=== PATIENT | female | born 1960 | race Caucasian/White ===

== ENCOUNTER → 2023-11-04 06:32 | Outpatient (REF) | payer BC, SELFPAY ==
[2023-11-04 07:49] LABS: ALT (SGPT) 15 U/L (0-35); AST (SGOT) 26 U/L (14-36); Albumin 4.3 g/dl (3.5-5.0); Alkaline Phosphatase 59 U/L (38-126); Blood Urea Nitrogen 16 mg/dl (7-17); Calcium 9.7 mg/dl (8.4-10.2); Carbon Dioxide 26 mmol/L (22-30); Chloride 107 mmol/L (98-107); Glucose 99 mg/dl (70-99); Potassium 4.8 mmol/L (3.5-5.1); Sodium 139 mmol/L (135-145); Total Bilirubin 0.8 mg/dl (0.2-1.3); Total Protein 6.9 g/dl (6.3-8.2); eGFR > 60.00
[2023-11-04 08:03] LABS: Free T4 1.13 ng/dl (0.78-2.19)
[2023-11-04 08:17] LABS: TSH 2.37 uIU/ml (0.47-4.68)
[2023-11-05 12:33] LABS: Thyroglobulin <0.1 ng/mL (1.3-31.8); Thyroglobulin Antibodies <0.9 IU/mL (0.0-4.0)
== END ==
LOC: REG 06:32
PROVIDERS: ATTENDING PHYSICIAN Internal Medicine Endocrinology, Diabetes & Metabolism; FAMILY PHYSICIAN Family Medicine
DX: E03.9 Hypothyroidism, unspecified (principal); Z85.850 Personal history of malignant neoplasm of thyroid; Z86.39 Personal history of other endocrine, nutritional and metabolic disease
CPT/HCPCS: 36415; 80053; 84432; 84439; 84443; 86800

== ENCOUNTER → 2024-03-02 08:21 | Outpatient (REF) | payer BC, SELFPAY | LOC: RAD 08:21 | PROVIDERS: ATTENDING PHYSICIAN Internal Medicine | DX: M81.0 Age-related osteoporosis without current pathological fracture (principal); Z86.39 Personal history of other endocrine, nutritional and metabolic disease; M25.50 Pain in unspecified joint | CPT/HCPCS: 73130; 77080; 77081 ==

== ENCOUNTER → 2024-11-08 07:07 | Outpatient (REF) | payer MEDICARE, BC, SELFPAY | LOC: RAD 07:07 | PROVIDERS: ATTENDING PHYSICIAN Internal Medicine Endocrinology, Diabetes & Metabolism; FAMILY PHYSICIAN Internal Medicine | DX: Z85.850 Personal history of malignant neoplasm of thyroid (principal) | CPT/HCPCS: 76536 ==

== ENCOUNTER → 2024-11-15 07:27 | Outpatient (REF) | payer SELFPAY | LOC: RAD 07:27 | PROVIDERS: ATTENDING PHYSICIAN Internal Medicine | DX: E78.5 Hyperlipidemia, unspecified (principal) | CPT/HCPCS: 75571 ==

== ENCOUNTER → 2024-11-24 06:23 | Outpatient (REF) | payer MEDICARE, BC, SELFPAY ==
[2024-11-24 07:35] LABS: ALT (SGPT) 14 U/L (0-35); AST (SGOT) 22 U/L (14-36); Albumin 4.4 g/dl (3.5-5.0); Alkaline Phosphatase 50 U/L (38-126); Blood Urea Nitrogen 16 mg/dl (7-17); Calcium 9.8 mg/dl (8.4-10.2); Carbon Dioxide 28 mmol/L (22-30); Chloride 108 mmol/L (98-107); Glucose 94 mg/dl (70-99); Potassium 4.4 mmol/L (3.5-5.1); Sodium 138 mmol/L (135-145); Total Protein 7.1 g/dl (6.3-8.2); eGFR > 60.00
[2024-11-24 08:07] LABS: TSH 2.99 uIU/ml (0.47-4.68)
[2024-11-26 00:38] LABS: Thyroglobulin Antibodies <1.5 IU/mL (0.0-4.0)
[2024-11-26 00:39] LABS: Thyroglobulin <0.1 ng/mL (1.3-31.8)
== END ==
LOC: REG 06:23
PROVIDERS: ATTENDING PHYSICIAN Internal Medicine Endocrinology, Diabetes & Metabolism; FAMILY PHYSICIAN Internal Medicine
DX: E03.2 Hypothyroidism due to medicaments and other exogenous substances (principal); E03.9 Hypothyroidism, unspecified; Z85.850 Personal history of malignant neoplasm of thyroid; Z86.39 Personal history of other endocrine, nutritional and metabolic disease
CPT/HCPCS: 36415; 80053; 82330; 83970; 84432; 84443; 86376; 86800